=== PATIENT | female | born 1990 ===

== ENCOUNTER 2017-12-11 11:17 | Emergency (ER) | payer OTHER ==
[2017-12-11 11:45] VITALS: BP 103/60
--- NOTE | 2017-12-11 12:57 | UC ---
Shoulder Pain HPI - HPI Summary HPI Summary: 27 y/o female presents to the urgent care c/o left shoulder pain radiating to the scapula for the past 4 weeks. Pt can't recall any injury. Pain 5/10 is intermittent and sometimes sharp and burning w/ certain movement and last for a few minutes; at rest is 0/10. Pt works w/ computer all the time. Pt denies fever, numbness and tingling sensation over the left hand, SOB, chest pain, abdominal pain, N/V/D. - History of Current Complaint Chief Complaint: UCUpperExtremity Stated Complaint: SHOULDER PAIN Time Seen by Provider: 12/11/17 12:55 Hx Obtained From: Patient Hx Last Menstrual Period: 12/05/17 ?: No - she is on Nexplanon Onset/Duration: Gradual Onset, Lasting Weeks - 4 weeks, Still Present, Worse Since - last week Timing: Intermittent Episode Lasting - few minutes Severity Initially: Mild Severity Currently: Moderate Location Of Pain: Is Discrete @ - left shoulder radiating to the scapula Pain Intensity: 5 - movement and 0/10 at rest Pain Scale Used: 0-10 Numeric Character: Sharp, Dull, Spasmodic, Burning Aggravating Factor(s): Movement, Lifting, Abduction Alleviating Factor(s): Rest, OTC Meds Associated Signs And Symptoms: Positive: Negative. Negative: Swelling, Redness , Bruising, Fever, Weakness, Numbness/Tingling Related History: Dominant Hand Right - Risk Factors Non-Orthopedic Risk Factor: Negative DVT Risk Factors: Negative Septic Arthritis Risk Factor: Negative - Allergies/Home Medications Allergies/Adverse Reactions: Allergies Allergy/AdvReac Type Severity Reaction Status Date / Time No Known Allergies Allergy Verified 12/11/17 11:45 PMH/Surg Hx/FS Hx/Imm Hx Previously Healthy: Yes - Pt denies PMHX - Surgical History Surgical History: None - Family History Known Family History: Positive: Cardiac Disease Family History: Hypothyrodism - Social History Occupation: Employed Full-time Lives: With Family Alcohol Use: None Substance Use Type: None Smoking Status (MU): Never Smoked Tobacco Review of Systems Constitutional: Negative Skin: Negative Eyes: Negative ENT: Negative Respiratory: Negative Cardiovascular: Negative Gastrointestinal: Negative Genitourinary: Negative Motor: Negative Neurovascular: Negative Musculoskeletal: Decreased ROM - LF shoulder, Other: - left shoulder pain Neurological: Negative Psychological: Negative Is Patient Immunocompromised?: No All Other Systems Reviewed And Are Negative: Yes Physical Exam - Summary Physical Exam Summary: Vital Signs Reviewed: Yes General: well developed, well nourished female sitting in the examining table w /o any apparent distress, Eyes: Positive: Conjunctiva Clear - PERRLA, EOMI, fundi grossly normal ENT: Positive: Normal ENT inspection, Hearing grossly normal, Pharynx normal, TMs normal Neck: Positive: Supple, Nontender, No Lymphadenopathy Respiratory: Positive: Chest non-tender, Lungs clear, Normal breath sounds, No respiratory distress Cardiovascular: Positive: RRR, No Murmur, Pulses Normal, Brisk Capillary Refill Abdomen Description: Positive: Nontender, No Organomegaly, Soft. Negative: CVA Tenderness (R), CVA Tenderness (L) Bowel Sounds: Positive: Present Musculoskeletal: Positive: Strength Intact, LF shoulder: The L shoulder is without obvious asymmetry or deformity when compared to the R shoulder. No surface trauma, ecchymosis, crepitus. No bony deformity or prominence of humeral head. No erythema, warmth. Point tenderness to palpation over medial aspect of the left scapula, no tenderness to the clavicle, or Acromioclavicular joint and humeral head.NT to palpation of the bicipital groove . NT to palpation of the muscles of the sternocleidomastoid, pectoralis, tenderness over biceps/triceps, deltoid, trapezius, . FROM of left shoulder. "empty can and drop arm test negative. No axillary tenderness or lymphadenopathy. Normal sensation over the deltoid and fingers. Distal motor and neurovascular status is intact. Neurological Exam: Normal Psychological Exam: Normal Skin Exam: Normal Triage Information Reviewed: Yes Vital Signs: Initial Vital Signs Temp 98.3 F 12/11/17 11:42 Pulse 85 12/11/17 11:42 Resp 18 12/11/17 11:42 BP 103/60 12/11/17 11:42 Pulse Ox 97 12/11/17 11:42 Shoulder Course/Dx - Course Course Of Treatment: 27 y/o female presents to the urgent care c/o left shoulder pain radiating to the scapula for the past 4 weeks. Pt can't recall any injury. Pain 5/10 is intermittent and sometimes sharp and burning w/ certain movement and last for a few minutes; at rest is 0/10. Pt works w/ computer all the time. Pt denies fever, numbness and tingling sensation over the left hand, SOB, chest pain, abdominal pain, N/V/D. Pt w/ probably muscle spasm. Pt's Rx Naproxen PO and Flexeril PO to alleviate symptoms. Shoulder immobilized with a shoulder sling for 2-3 days. Advised to f/u with PT referral for further evaluation and Orthopedic referral Dr Zaragoza if not improvement of symptoms in 1 week. Pt understood and agreed w/ plan of care. - Differential Dx/Diagnosis Differential Diagnosis/HQI/PQRI: Contusion, Fracture (Closed), Rotator Cuff Injury, Sprain, Strain, Tendonitis Provider Diagnoses: 1- Left shoulder pain. 2-Muscle spasm Discharge - Sign-Out/Discharge Documenting (check all that apply): Discharge/Admit/Transfer - D/C home - Discharge Plan Condition: Stable Disposition: HOME Prescriptions: Cyclobenzaprine TAB* [Flexeril 10 MG TAB*] 10 mg PO TID PRN #21 tab PRN Reason: Spasms - Muscle Naproxen TAB* [Naprosyn 250 mg TAB*] 250 mg PO Q8H PRN #30 tab PRN Reason: shoulder pain Patient Education Materials: Muscle Spasm (ED), Shoulder Pain (ED) Referrals: [facility] [place] [facility] [place]] - 1 Week Donna Zaragoza MD [Medical Doctor] - 1 Week Additional Instructions: 1-Please take medications as directed to alleviate pain and swelling. 2-Please apply ice, keep your shoulder immobilized with the shoulder sling for 3 -4 days and then resume movement slowly 3- Please f/u with Orthopedic or your PCP in 1 week is not improvement of symptoms for further evaluation and treatment. 4- Please f/u physical therapy referral if not improvement of symptoms - Billing Disposition and Condition Condition: STABLE Disposition: HOME
== END 2017-12-11 13:40 | disposition home or self-care (01) ==
LOC: UCEAST 11:17
DX: M25.512 Pain in left shoulder (principal); M62.838 Other muscle spasm
CPT/HCPCS: 99203; G0463